=== PATIENT | female | born 1945 | race Caucasian/White ===

== ENCOUNTER 2024-08-07 11:37 | Outpatient (CLI) | payer MEDICARE, OTHER, SELFPAY ==
--- OUTSIDE RECORDS SUMMARY | 2024-08-07 11:41 | XMS_ITS ---
Author Organization [facility] Address [address] [place] [address] Care Team Providers Care Content Management Specialist Name Role Phone Hemanth Carlos Primary Care Provider Franky Oliver Unavailable [phone] Kera Brooks Unavailable [phone] Allergies Allergen (clinical drug ingredient) Drug/Non Drug Allergy documented on EMR Reaction Allergy Type Onset Date Status amoxicillin Amoxicillin Unknown Drug Allergy [place] ctive amoxicillin / clavulanate Augmentin rash Drug Allergy Active Substance with sulfonamide structure and antibacterial mechanism of action (substance) Sulfa Antibiotics rash Drug Allergy Active REASON FOR VISIT 4 month Thyroid Cancer follow up POST ULTRASOUND Medications Medication SIG (Take, Route, Frequency, Duration) Notes Start Date End Date Status ALPRAZolam 0.25 MG 1 tablet Oral once daily for 30 days As needed Active Mupirocin 2 % 1 application External Twice a day for 90 days As needed Active Desloratadine 5 MG 1 tablet Orally Once a day for 90 days Active Famotidine 40 MG 1 tablet at bedtime Orally Once a day As needed Active amLODIPine Besylate 2.5 MG 1 tablet Oral ly Once a day Active Synthroid 112 MCG 1 tablet in the morn ing on an empty stomach Oral Once a day for 90 days Active Estring 7.5 MCG/24HR 1 ring Vaginal ever y 3 months for 90 days Active Imbruvica 420 MG 1 tablet Oral Once a day for 28 days Active Azelastine HCl 137 MCG/SPRAY 1 puff in each nostril Nasal Twice a day for 93 days Active Problems Problem Type SNOMED Code ICD Code Onset Dates Problem Status W/U Status Risk Notes Problem Hypocalcemia (1006705) Hypocalcemia (E83.51) Active confirmed Vital Signs Blood pressure systolic 152 mm Hg 12/12/19 24 Blood pressure diastolic 68 mm Hg 024 Heart Rate 80 /min 12/12/2023 Height 60 in 12/12/2023 Weight 133 lbs 12/12/2023 BMI 25.97 kg/m2 12/12/2023 Encounters Encounter Location Date Provider Diagnosis [facility]- [address] [place] [address] 12/12/2023 Kera Brooks Postsurgical hypothyroidism E89.0 ; Personal history of malignant neoplasm of thyroid Z85.850 and Hypocalcemia E83.51 Assessments Encounter Date Diagnosis (ICD Code) Assessment Notes Treatment Notes Treatment Clinical Notes Section Notes 12/12/2023 Postsurgical hypothyroidism (ICD-10 - E89.0) There is both clinical and biochemical evidence for thyroid hormone deficiency. TSH 1.48 (prior 1.35) and Free T4 1.40 1. Increase dose of thyroid hormone replacement. 2. Repeat thyroid labs (thyroxine and thyrotropin) in three months and prior to next appointment. 12/12/2023 Personal history of malignant neoplasm of thyroid (ICD-10 - Z85.850) Hypothyroidism s/p total thyroidectomy for papillary thyroid cancer. No evidence for recurrence based on recent thyroglobulin levels. Reviewed latest thyroid ultrasound which did not demonstrate any residual thyroid tissue nor any significant lymphadenopathy. 1. Continue with thyroid hormone suppressive therapy. 2. Continue to monitor neck region with annual thyroid ultrasound. (Due 10/2024) 3. Continue to monitor thyroglobulin levels 12/12/2023 Hypocalcemia (ICD-10 - E83.51) Calcium 8.5 12/12/2023 Other This patient was seen under the direct supervision of Dr. Mac, who established the initial plan of care which is currently being followed Plan Of Treatment Medication Medication Name Sig Start Date Stop Date Notes Synthroid 112 MCG 1 tablet in the morn ing on an empty stomach Oral Once a day for 90 days Treatment Notes Assessment Notes Postsurgical hypothyroidism There is both clinical and biochemical evidence for thyroid hormone deficiency. TSH 1.48 (prior 1.35) and Free T4 1.40 1. Increase dose of thyroid hormone replacement. 2. Repeat thyroid labs (thyroxine and thyrotropin) in three months and prior to next appointment. Personal history of malignan t neoplasm of thyroid Hypothyroidism s/p total thyroidectomy for papillary thyroid cancer. No evidence for recurrence based on recent thyroglobulin levels. Reviewed latest thyroid ultrasound which did not demonstrate any residual thyroid tissue nor any significant lymphadenopathy. 1. Continue with thyroid hormone suppressive therapy. 2. Continue to monitor neck region with annual thyroid ultrasound. (Due 10/2024) 3. Continue to monitor thyroglobulin levels Hypocalcemia Calcium 8.5 Future Test Test Name Order Date TSH+FREE T4 03/11/2024 Comp. Metabolic Panel (14) 04/28/2024 TSH+FREE T4 04/28/2024 Next Appt Details Follow Up: 6 Months, Reason: Follow up Thyroid Cancer Progress Notes * Jade TAVARESDOB: 4 (78 yo F)Acc No.[id number]:12/12/2023 Ofc Visit Patient:?Jade TAVARES Provider:?Kera Brooks APRN :1945???Age:78 Y???Sex:Female D ate:12/12/2023 Address:[address] [place] [address] [place], [id number] Pcp:Hemanth Carlos Subjective: * Chief Complaints: * ???4 month Thyroid Cancer fo llow up POST ULTRASOUND * HPI: ???:? Endocrinology medical history summary: Hypothyroidism - diagnosed 1989 post surgical/thyroid cancer Thyroid ultrasound 11/22/2023; Status-post total thyroidectomy. Multiple benign appearing lymph nodes noted in the right and left cervical neck. No significant lymphadenopathy or evidence for thyroid cancer recurrence. Here for follow up regarding thyroid cancer management. There have not been any significant changes since our last office visit. There have not been any thyroid hormone medication changes. No recent significant illnesses. There has not been any inappropriate temperature changes, neither hot or cold intolerance. No significant memory changes, denies becoming forgetful, depressed, or irritable. Admits to anxiety. Denies any nervousness, irritability, tremors. No troubles sleeping. No chest discomfort, palpitations, or exertional dyspnea. No weakness or skin changes. No bowel, appetite or inappropriate weight changes. Has not noticed any neck enlargement, masses, or hoarseness. Admits to dry throat when she eats since starting Imbruvica. No eye problems (photophobia, eye irritation, diplopia), or changes in visual acuity. * ROS:?Endocrinology:?General?Denies fever, chills, sweats, headache.?HEENT?Dry eyes, ocular migraines, Denies double or blurred vision, sore throat, hoarseness, dysphagia, dysphonia.?Pulmonary Denies dyspnea, cough.?Cardiac?Denies chest pains, dyspnea on exertion, syncope, palpitations.?GI?Denies nausea, diarrhea, vomiting, constipation, changes in bowels, changes in appetite.??Denies urinary frequency, hematuria.?Musculoskeletal?Joint pain, Denies stiffness, weakness, muscle spasm/cramps.?Neurologic?Denies numbness/tingling,.?Dermatologic?Denies rashes or itching.?Endocrine?Denies weight changes, heat/cold intolerance, increased thirst, hair thinning.?Psychiatric?Anxiety, Denies depression, memory loss, nervousness, or insomnia.? * Medical History:? * Surgical History:?thyroidect janae 1989, 2004cesarean section 1971, 1975cholecystectomy 1994bunionectomy tubal ligation * Hospitalization/Major Diagno stic Procedure:?No Hospitalization History. * Family History:?Siblings: di agnosed with Thyroid.? * Social History:?Endocrinology:?Caffeine intake: None. ?Smoking history: Quit 1968. ?Exercise: Daily walks. ?Alcohol use: None. ?Marital status: . ?Children: 2. ?Occupation: Retired. * Medications:?TakingamLODIPin e Besylate 2.5 MG Tablet 1 tablet Orally Once a day Synthroid 100 MCG Tablet 1 tablet in the morning on an empty stomach Oral Once a day Estring 7.5 MCG/24HR Ring 1 ring Vaginal every 3 months Imbruvica 420 MG Tablet 1 tablet Oral Once a day Azelastine HCl 137 MCG/SPRAY Solution 1 puff in each nostril Nasal Twice a day Desloratadine 5 MG Tablet 1 tablet Orally Once a day Famotidine 40 MG Tablet 1 tablet at bedtime Orally Once a day As neededALPRAZolam 0.25 MG Tablet 1 tablet Oral once daily As neededMupirocin 2 % Ointment 1 application External Twice a day As neededTaking amLODIPine Besylate 2.5 MG Tablet 1 tablet Orally Once a day Taking Synthroid 100 MCG Tablet 1 tablet in the morning on an empty stomach Oral Once a day Taking Estring 7.5 MCG/24HR Ring 1 ring Vaginal every 3 months Taking Imbruvica 420 MG Tablet 1 tablet Oral Once a day Taking Azelastine HCl 137 MCG/SPRAY Solution 1 puff in each nostril Nasal Twice a day Taking Desloratadine 5 MG Tablet 1 tablet Orally Once a day Taking Famotidine 40 MG Tablet 1 tablet at bedtime Orally Once a day As neededTaking ALPRAZolam 0.25 MG Tablet 1 tablet Oral once daily As neededTaking Mupirocin 2 % Ointment 1 application External Twice a day As neededDiscontinuedLevocetirizine Dihydrochloride 5 MG Tablet 1 tablet in the evening Oral Once a day Medication List reviewed and reconciled with the patientDiscontinued Levocetirizine Dihydrochloride 5 MG Tablet 1 tablet in the evening Oral Once a day Medication List reviewed and reconciled with the patient * Allergies:?Sulfa Antibiotics : rash - AllergyAugmentin: rash - Allergyno[Allergies Verified] Objective: * Vitals:?Ht: 60, Wt: 133 lbs, BP: 152/68 mm Hg, HR: 80 /min, BMI: 25.97 Index, Ht-cm: 152.4 cm, Wt-k.33 kg. * ???Past Orders: ???Lab:CLIENT EDUCATION OSIRIS SINGH (Order Date - 11/30/2023) (Collection Date & Time - 11/30/2023 07:55 AM) ???Lab:THYROGLOBULIN PANEL ( Order Date - 11/30/2023) (Collection Date & Time - 11/30/2023 07:55 AM) ? Value Reference Range ?THYROGLOBULIN ANTIBODIES 10 H < or = 1 - IU/mL ?THYROGLOBULIN <0.1 L - ng/m L * Examination: ???ENDO EXAM: ?General: ?Normal Appearance.?Eyes: ?Normal Appearance. No lid lag, proptosis or exophthalmos.?Neck: ?Supple, No Masses, Well Healed Scar.?Thyroid: ?No palpable thyroid.?Cardiac: ?Regular rate and Rhythm without murmur, No carotid bruits.?Pulmonary: ?Normal effort without accessory muscle use. No rales, rhonchi, or wheezes.?Musculoskeletal:?Normal mobility and gait.?Neurological: ?No Tremors.?Mental Status: ?Intact judgement and orientation. Normal mood and affect.?Skin:?No rashes, lesions, or ulcerations.? Assessment: * Assessment: 1.?Postsurgical hypothyroidi sm - E89.0?2.?Personal history of malignant neoplasm of thyroid - Z85.850?3.?Hypocalcemia - E83.51? Plan: * Treatment: 2.?Personal history of malig nant neoplasm of thyroid? Notes: Hypothyroidism s/p total thyroidectomy for papillary thyroid cancer. No evidence for recurrence based on recent thyroglobulin levels. Reviewed latest thyroid ultrasound which did not demonstrate any residual thyroid tissue nor any significant lymphadenopathy. 1. Continue with thyroid hormone suppressive therapy. 2. Continue to monitor neck region with annual thyroid ultrasound. (Due 10/2024) 3. Continue to monitor thyroglobulin levels?? 3.?Hypocalcemia?LAB: Comp. Metabolic Panel (14) (Ordered for 04/28/2024) Notes: Calcium 8.5?? 4.?Others? Clinical Notes: This patient was seen under the direct supervision of Dr. Mac, who established the initial plan of care which is currently being followed ?? * Procedure Codes:? * Preventive Medicine:? ??Endocrine:?BMI care Goal Follow Up Plan?Above Normal BMI Follow-up?Giving encouragement to exercise ??Counseling:?Advance Care Planning?Date of last Advance Care Planning:?12/12/2023 ??Screenings:?FALL RISK SCREENING?Fall Risk Assessment:?No falls in the past year ?Plan of Care:?Documented * Follow Up:?6 Months (Reason: Follow up Thyroid Cancer) * Care Plan Details* * Sign off status: Completed true * Provider:?Kera rBooks APRN Date:?11/25 Generated for Florecita loera/Tayler/Lincolnitting on:?08/07/2024 11:41 AM EST History and Physical Notes * HPI (History of Present Illness) Category Sub-Category Detail Notes Category Not es Endocrinology medical history summary: Hypothyroidism - diagnosed 1989 post surgical/thyroid cancer Thyroid ultrasound 11/22/2023; Status-post total thyroidectomy. Multiple benign appearing lymph nodes noted in the right and left cervical neck. No significant lymphadenopathy or evidence for thyroid cancer recurrence. Here for follow up regarding thyroid cancer management. There have not been any significant changes since our last office visit. There have not been any thyroid hormone medication changes. No recent significant illnesses. There has not been any inappropriate temperature changes, neither hot or cold intolerance. No significant memory changes, denies becoming forgetful, depressed, or irritable. Admits to anxiety. Denies any nervousness, irritability, tremors. No troubles sleeping. No chest discomfort, palpitations, or exertional dyspnea. No weakness or skin changes. No bowel, appetite or inappropriate weight changes. Has not noticed any neck enlargement, masses, or hoarseness. Admits to dry throat when she eats since starting Imbruvica. No eye problems (photophobia, eye irritation, diplopia), or changes in visual acuity. Examination Category Sub-Category Detail Notes Category Not es ENDO EXAM Neck: Supple, No Masses, Well Heal ed Scar Thyroid: No palpable thyroid Eyes: Normal Appearance. N o lid lag, proptosis or exophthalmos Cardiac: Regular rate and Rhy thm without murmur, No carotid bruits General: Normal Appearance Pulmonary: Normal effort withou t accessory muscle use. No rales, rhonchi, or wheezes Musculoskeletal: Normal mobility and gait Skin: No rashes, lesions, or ulcerations Neurological: No Tremors Mental Status: Intact judgement and orientation. Normal mood and affect
--- OUTSIDE RECORDS SUMMARY | 2024-08-07 11:41 | XMS_ITS ---
Author Organization [facility] Address [address] [place] [address] Care Team Providers Care Prop Maker Name Role Phone Hemanth Carlos Primary Care Provider Franky Oliver Unavailable [phone] Allergies Allergen (clinical drug ingredient) Drug/Non Drug Allergy documented on EMR Reaction Allergy Type Onset Date Status amoxicillin Amoxicillin Unknown Drug Allergy [place] ctive amoxicillin / clavulanate Augmentin rash Drug Allergy Active Substance with sulfonamide structure and antibacterial mechanism of action (substance) Sulfa Antibiotics rash Drug Allergy Active REASON FOR VISIT Synthroid to [facility] Medications Medication SIG (Take, Route, Fr equency, Duration) Notes Start Date End Date Status Synthroid 112 MCG 1 tablet in the morn ing on an empty stomach Oral Once a day for 90 days Active Encounters Encounter Location Date Provider Diagnosis [facility] [address] [place] [address] 01/02/2024 Franky Mac Postsurgical hypothyroidism E89.0 Assessments Encounter Date Diagnosis (ICD Code) Assessment Notes Treatment Notes Treatment Clinical Notes Section Notes 01/02/2024 Postsurgical hypothyroidism (ICD-10 - E89.0) Plan Of Treatment Medication Medication Name Sig Start Date Stop Date Notes Synthroid 112 MCG 1 tablet in the morn ing on an empty stomach Oral Once a day for 90 days Progress Notes * Jade TAVARESDOB: 4 (78 yo F)Acc No.[id number]:01/02/2024 Patient:?ANUSHA Jade :1945???Age:78 Y???Sex:Female Address:[address], [place] [address] * Refills? Refill Synthroid Tablet, 112 MCG, Oral, 90 Tablet, 1 tablet in the morning on an empty stomach, Once a day, 90 days, Refills=1 Subjective: * Chief Complaints: * ???Synthroid to [facility] * Medical History:? * Surgical History:? * Hospitalization/Major Diagno stic Procedure:? * Medications:? * Allergies:?Sulfa Antibiotics : rash - AllergyAugmentin: rash - Allergyno[Allergies Verified] Objective: * Vitals:? * Physical Examination:? Assessment: * Assessment: 1.?Postsurgical hypothyroidi sm - E89.0? Plan: * Treatment: * Procedure Codes:? * true * Date:? Generated for Florecita loera/Tayler/Lincolnitting on:?08/07/2024 11:41 AM EST
--- OUTSIDE RECORDS SUMMARY | 2024-08-07 11:41 | XMS_ITS ---
Author Organization [facility] Address [address] [place] [address] Care Team Providers Care Workforce Development Program Director Name Role Phone JonnHemanth Primary Care Provider sasha Hemanth Unavailable [phone] Reason For Referral Reason replaced by [facility] Diagnosis 1 CLL (chronic lymphoc ytic leukemia) (C91.10) Referral Organization [facility] Referring Provider First Name Hemanth Referring Provider Last Name Breanna Referring Provider Speciality Internal M edicine Referred Organization [facility] Referred Address [address] [place], [place],[address], Referred Provider Specialty Oncology Referral Priority Routine Encounters Encounter Location Date Provider Diagnosis [facility] [address] [place] [address] 10/30/2023 Hemanth Tiwarisasha CLL (chronic lymphocytic leukemia) C91.10 Assessments Encounter Date Diagnosis (ICD Code) Assessment Notes Treatment Notes Treatment Clinical Notes 10/30/2023 CLL (chronic lymphocytic leukemia) (ICD-10 - C91.10) was in remission, recurrence 1 1/2 yrs ago, feels may have been brought on by vaccine, COVID 19. Stable on Imbruvica, [place]/ [place] 06/[place]/23 patient is establishing with Dr Villeda in [place] 10/04/23 WBC 11.27 following with oncologist on ibrutinib Plan Of Treatment Referrals Referral Date Details 10/30/2023 10/30/2023, replaced by [facility], [address], [place], [address], Progress Notes * Jade TAVARESDOB: 4 (78 yo F)Acc No.[id number]:10/30/2023 Patient:?Jade Tavares :1945???Age:78 Y???Sex:Female Address:[address] [place] [address] , [place] [address] Subjective: * Chief Complaints: * ??? * Medical History:? * Surgical History:? * Hospitalization/Major Diagno stic Procedure:? * Medications:? Objective: Assessment: * Assessment: 1.?CLL (chronic lymphocytic leukemia) - C91.10 (Primary), was in remission, recurrence 1 1/2 yrs ago, feels may have been brought on by vaccine, COVID 19. Stable on Imbruvica, follows w/ oncology Dr. Cisse [place], [place].06/28/23 patient is establishing with Dr [place]23 WBC 11.27 following with oncologist on ibrutinib? Plan: * Treatment: * Procedure Codes:? * true * Date:? Generated for Florecita loera/Tayler/Juniorsmitting on:?08/07/2024 11:41 AM EST Consultation Request Notes Referral Date Referring Provider Referred Provider Not es 10/30/2023 Hemanth Carlos , replaced by [facility]
--- OUTSIDE RECORDS SUMMARY | 2024-08-07 11:41 | XMS_ITS | Patient Health Record ---
Author Organization [facility]- Address [address] [place] [address] Care Team Providers Care Core Shaper Sides Name Role Phone Hemanth Carlos Primary Care Provider Franky Oliver Unavailable [phone] Kera Brooks Unavailable [phone] Allergies Allergen (clinical drug ingredient) Drug/Non Drug Allergy documented on EMR Reaction Allergy Type Onset Date Status amoxicillin Amoxicillin Unknown Drug Allergy Lucille ctive amoxicillin / clavulanate Augmentin rash Drug Allergy Active Substance with sulfonamide structure and antibacterial mechanism of action (substance) Sulfa Antibiotics rash Drug Allergy Active Results Component Value Reference Range Notes CLIENT EDUCATION TRACKING Reviewed date:12/04/2023 04:10:56 PM Interpretation: Performing Lab:[id number] [id number] Michele Wyatt MD Notes/Report: FASTING: YES CLIENT EDUCATION TRACKING The Requisition we received did not include a [employer] account number. To prevent delays in testing and processing of your orders please provide the following information with every order submitted: [facility] account number and account name Client address Client phone and fax number NPI number of ordering physician along with the physician name. THYROGLOBULIN PANEL Reviewed date:12/04/2023 04:10:56 PM Interpretation: Performing Lab:[facility] [id number] [id number] Michele Wyatt MD Notes/Report: FASTING: YES THYROGLOBULIN ANTIBODIES 10 < or = 1 IU/mL THYROGLOBULIN <0.1 Reference Range: Intact Thyroid 2.8-40.9 Athyrotic <0.1 Note: Abnormal flagging is based on the reference interval for patients with intact thyroid. This test was performed using the Johnathan Sofy chemiluminescent method. Values obtained from different assay methods cannot be used interchangeably. Thyroglobulin levels, regardless of value, should not be interpreted as absolute evidence of the presence or absence of disease. This specimen was found to contain anti-thyroglobulin antibodies. The presence of these autoantibodies may cause falsely low thyroglobulin values. In Tg-antibody positive patients the thyroglobulin by tandem mass spectrometry (test code 32261 - Thyroglobulin, LC/MS/MS; or panel test code 04738 - Thyroid Cancer (Thyroglobulin) Monitoring) test is recommended because it has no interference from autoantibodies. For additional information, please refer to http://education.Pluck/faq/QDQ125 (This link is being provided for informational/ educational purposes only.) Reason For Referral No Information Medications Medication SIG (Take, Route, Frequency, Duration) [...] tablet Oral ly Once a day Active Estring 7.5 MCG/24HR 1 ring Vaginal ever y 3 months for 90 days Active Synthroid 112 MCG 1 tablet in the morn ing on an empty stomach Oral Once a day for 90 days Active Imbruvica 420 MG 1 tablet Oral Once a day for 28 days Active Azelastine HCl 137 MCG/SPRAY 1 puff in each nostril Nasal Twice a day for 93 days Active Problems Problem Type SNOMED Code ICD Code Onset Dates Problem Status W/U Status Risk Notes Problem Hypocalcemia (8286423) Hypocalcemia (E83.51) Active confirmed Problem Postsurgical hypothyroidism (59612713) Postsurgical hypothyroidism (E89.0) Active confirmed Problem History of malignant neoplasm of thyroid (700104937) Personal history of malignant neoplasm of thyroid (Z85.850) Active confirmed Vital Signs Heart Rate 80 /min 12/12/2023 Blood pressure diastolic 68 mm Hg 12/12/2023 Height 60 in 12/12/2023 Blood pressure systolic 152 mm Hg 12/12/2023 Weight 133 lbs 12/12/2023 BMI 25.97 kg/m2 12/12/2023 Encounters Encounter Location Date Provider Diagnosis [address] [address] 08/09/2023 Franky Mac Postsurgical hypothyroidism E89.0 and Personal history of malignant neoplasm of thyroid Z85.[address] [address] 11/22/2023 Franky Mac Personal history of malignant neoplasm of thyroid Z85.[address] [address] 12/12/2023 Kera Brooks Postsurgical hypothyroidism E89.0 ; Personal history of malignant neoplasm of thyroid Z85.850 and Hypocalcemia E83.[address] [address] 01/02/2024 Franky Mac Postsurgical hypothyroidism E89.0 Assessments Encounter Date Diagnosis (ICD Code) Assessment Notes Treatment Notes Treatment Clinical Notes Section Notes 08/09/2023 Postsurgical hypothyroidism (ICD-10 - E89.0) Reviewed medical history and specifically thyroid hormone replacement history with patient. There does not appear to be any signs or symptoms suggesting a change in the dose of thyroid hormone replacement therapy. Therefore, we have opted to continue with the current dose and management. I will repeat a set of thyroid studies (thyroxine and thyrotropin) to see if levels are within range. I will make the necessary dose adjustments if indicated. 11/22/2023 Personal history of malignant neoplasm of thyroid (ICD-10 - Z85.850) 12/12/2023 Postsurgical hypothyroidism (ICD-10 - E89.0) There is both clinical and biochemical evidence for thyroid hormone deficiency. TSH 1.48 (prior 1.35) and Free T4 1.40 1. Increase dose of thyroid hormone replacement. 2. Repeat thyroid labs (thyroxine and thyrotropin) in three months and prior to next appointment. 01/02/2024 Postsurgical hypothyroidism (ICD-10 - E89.0) 12/12/2023 Personal history of malignant neoplasm of [...] 10/2024) 3. Continue to monitor thyroglobulin levels 08/09/2023 Personal history of malignant neoplasm of thyroid (ICD-10 - Z85.850) At this point there does not appear to be any evidence for recurrence or persistent disease. Appears to clinically stable. I have scheduled a repeat thyroid ultrasound and will also reassess thyroglobulin levels. 12/12/2023 Hypocalcemia (ICD-10 - E83.51) Calcium 8.5 12/12/2023 Other This patient was seen under the direct supervision of Dr. Mac, who established the initial plan of care which is currently being followed Plan Of Treatment Future Test Test Name Order Date THYROGLOBULIN ANTIBODIES * 11/08/2023 Comp. Metabolic Panel (14) 11/08/2023 TSH+Free T4 11/08/2023 THYROGLOBULIN* 11/08/2023 TSH+FREE T4 03/11/2024 Comp. Metabolic Panel (14) 04/28/2024 TSH+FREE T4 04/28/2024 Insurance Providers Payer Name Payer Address Payer Phone Subscriber Number Group Number Insured Name Patient Relationship to Insured Coverage Start Date Coverage End Date MEDICARE [address] [address] [place] [address] [id number] Jade Vallejo Self - patient is the insured 9 [facility] [address] [place] [address] [id number] Jade aVllejo Self - patient is the insured 2 Medical (General) History Medical History History ICD Code Hypothyroid HTN Thyroid cancer Chronic lymphocytic leukemia Surgical History Surgery Date(Month/Year) thyroidectomy 1989, 2004 section 1970, 1974 cholecystectomy 1994 bunionectomy tubal ligation
--- OUTSIDE RECORDS SUMMARY | 2024-08-07 11:41 | XMS_ITS ---
Author Organization [facility] Address [address] [place] [address] Care Team Providers Care Spine Specialist Name Role Phone Hemanth Lunsford Primary Care Provider [phone] Hemanth Carlos Unavailable [phone] REASON FOR VISIT fasting labs Medications Medication SIG (Take, Route, Frequency, Duration) Notes Start Date End Date Status Xanax 0.25 MG 1 tablet Orally daily for 30 days prn 06/28/2023 Active Synthroid 100 MCG 1 tablet in the morning on an empty stomach Orally Once a day for 90 days Name brand only Active Mupirocin 2 % 1 application Externally Twice a day for 30 days Active Milk of Magnesia Act jeanie Imbruvica 420 MG 1 tablet Orally Once a day 1 1/2 years for [facility]-Dr. Wesley Benitez Active Flax Seed Oil Active Pepcid 40 MG 1 tablet at bedtime Orally as needed Active amLODIPine Besylate 2.5 MG 1 tablet Orally Once a day Active Loratadine 10 MG 1 tablet Orally Once a day Active Estring 7.5 MCG/24HR 1 ring Vaginal Active Desloratadine 5 MG 1 tablet Orally Once a day for 90 days Active Encounters Encounter Location Date Provider Diagnosis [facility] [address] [place] [address] 11/30/2023 Hemanth Lunsford Hypothyroidism (acqu ired) E03.9 ; Hyperlipemia, mixed E78.2 ; Hypogammaglobulinemia D80.1 and Hypothyroidism, unspecified type E03.9 Assessments Encounter Date Diagnosis (ICD Code) Assessment Notes T reatment Notes Treatment Clinical Notes 11/30/2023 Hypothyroidism (acqu ired) (ICD-10 - E03.9) 08/21/2022-TSH completed in [place] unknown, TSH ordered today as she reports she did have a change in her dose in the spring from 100mcg daily to 88mcg Synthroid currently. 08/31/2022 TSH 14, Aaron notified. Increased her Synthroid to 100mcg daily and f/u 2 months for repeat TSH. She understands and agrees. 09/01/22 [place] T4 1.42 TSH 14.13 we will increase to 100mcg 11/03/22 Free t4- 1.65 TSH 1.66 12/29/22 Free t4- 1.74 Free t3 2.20 TSH 1.26 11/30/2023 Hyperlipemia, mixed (ICD-10 - E78.2) 10/04/23 TC 241 Trigs 93 HDL 80 LDL 172 11/30/2023 Hypogammaglobulinemi a (ICD-10 - D80.1) 10/04/23 Pts IgG 585 and was started on 2 rounds of IVIG at [facility]. 11/30/2023 Hypothyroidism, unspecified type (ICD-10 - E03.9) Plan Of Treatment No Information Procedure Notes * Category Sub-Category Detail Notes Venipuncture Venipuncture: verbal consent o btained , 21g needle , Right arm , number of attempts: 1 , All labs done in house , Thyroglobulin Antibodies and Thyroglobulin sent to [facility] , patient tolerated procedure well Progress Notes * Jade TAVARESDOB: 4 (78 yo F)Acc No.[id number]:11/30/2023 [facility] Patient:?Jade Tavares Provider:?Hemanth Wolfe MD :1945???Age:78 Y???Sex:Female D ate:11/30/2023 Address:[facility] [address], [facility] [id number] Subjective: * Chief Complaints: * ???1. Fasting labs. * HPI: ???AWV-F:? Patient is here for fasting labs ordered by [facility]. Patient states that she is fasting. * Medical History:? * Medications:?Taking Loratadi ne 10 MG Tablet 1 tablet Orally Once a day, Taking Estring 7.5 MCG/24HR Ring 1 ring Vaginal , Taking amLODIPine Besylate 2.5 MG Tablet 1 tablet Orally Once a day, Taking Flax Seed Oil , Taking Pepcid 40 MG Tablet 1 tablet at bedtime Orally as needed, Taking Milk of Magnesia , Taking Imbruvica 420 MG Tablet 1 tablet Orally Once a day, Notes: 1 1/2 years for [facility]-Dr. Wesley Benitez, Taking Synthroid 100 MCG Tablet 1 tablet in the morning on an empty stomach Orally Once a day, Notes: Name brand only, Taking Mupirocin 2 % Ointment 1 application Externally Twice a day, Taking Xanax 0.25 MG Tablet 1 tablet Orally daily, Notes: prn, Taking Desloratadine 5 MG Tablet 1 tablet Orally Once a day Objective: Assessment: * Assessment: 1.?Hyperlipemia, mixed - E78 .2, 10/04/23 TC 241 Trigs 93 HDL 80 LDL 172?2.?Hypothyroidism (acquired) - E03.9, 08/21/2022-TSH completed in [place] unknown, TSH ordered today as she reports she did have a change in her dose in the spring from 100mcg daily to 88mcg Synthroid currently.08/31/2022 TSH 14, Aaron notified. Increased her Synthroid to 100mcg daily and f/u 2 months for repeat TSH. She understands and agrees.09/01/22 [place] T4 1.42 TSH 14.13 we will increase to 618bkl6/06/18 Free t4- 1.65 TSH 1.665/01/16 Free t4- 1.74 Free t3 2.20 TSH 1.26?3.?Hypogammaglobulinemia - D80.1, 10/04/23 Pts IgG 585 and was started on 2 rounds of IVIG at [facility].?4.?Hypothyroidism, unspecified type - E03.9? Plan: * Treatment: * Procedures:?Venipuncture:?Venipuncture:?verbal consent obtained , 21g needle , Right arm , number of attempts: 1 , All labs done in house , Thyroglobulin Antibodies and Thyroglobulin??sent to [facility]?, patient tolerated procedure well.? * Procedure Codes:?11896 VENIP UNCT, ROUTINE*, 47595 COMPREHEN METABOLIC PANEL, 91120 ASSAY OF FREE THYROXINE, 32511 ASSAY THYROID STIM HORMONE * Images: * Sign off status: Completed true * Provider:Napoleon Wolfe MD Date:? 024 Generated for Florecita loera/Tayler/Lincolnitting on:?08/07/2024 11:41 AM EST
--- OUTSIDE RECORDS SUMMARY | 2024-08-07 11:41 | XMS_ITS ---
Author Organization [facility] Address [address] [place] [address] Care Team Providers Care Red Hat Engineer Name Role Phone Hemanth Carlos Primary Care Provider Franky Oliver Unavailable [phone] Kera Brooks Unavailable [phone] REASON FOR VISIT 7 month Thyroid Cancer follow up Encounters Encounter Location Date Provider Diagnosis [address] [address] 07/01/2024 Kera Brooks Plan Of Treatment No Information Progress Notes * Jade TAVARESDOB: [birth year] (78 yo F)Acc No.[id number]:07/01/2024 Ofc Visit Patient:?Jade TAVARES Provider:?Kera Brooks APRN :1945???Age:78 Y???Sex:Female D ate:07/01/2024 Address:[address] [place] [address] [id number] Pcp:Hemanth Carlos Subjective: * Chief Complaints: * ???1. 7 month Thyroid Cancer follow up. * Medical History:? Objective: * Vitals:? Assessment: Plan: * Treatment: * Care Plan Details* * Electronic signature of Rosalva Brooks on 08/07/2024 at 11:40 AM EST Sign off status: Pending * Provider:?Kera Brooks APRN Date:?12/2023 Generated for Florecita loera/Tayler/eTtanishasmitting on:?08/07/2024 11:40 AM EST
--- OUTSIDE RECORDS SUMMARY | 2024-08-07 11:42 | XMS_ITS ---
Author Organization [facility] [place] [facility] [employer] Address [address] [place] [address] Care Team Providers Care Seamer Panty Hose Name Role Phone Hemanth Lunsford Primary Care Provider [phone] BreannaHemanth Unavailable [phone] Allergies Allergen (clinical drug ingredient) Drug/Non Drug Allergy documented on EMR Reaction Allergy Type Onset Date Status amoxicillin / clavulanate Augmentin Unknown Drug Allergy Active Levaquin Unknown Drug Allergy Active Sulfur Unknown Drug Allergy Active REASON FOR VISIT 3 Mo. FU Labs (IH), Meds Reconciled Verbally Medications Medication SIG (Take, Route, Frequency, Duration) Notes Start Date End Date Status Synthroid 100 MCG 1 tablet in the morning on an empty stomach Orally Once a day for 90 days Name brand only Active Xanax 0.25 MG 1 tablet Orally daily for 30 days prn 06/28/2023 Active Mupirocin 2 % 1 application Externally Twice a day for 30 days Active Desloratadine 5 MG 1 tablet Orally Once a day for 90 days Active Pepcid 40 MG 1 tablet at bedtime Orally as needed Active Flax Seed Oil Active Imbruvica 420 MG 1 tablet Orally Once a day 1 1/2 years for CLL-Dr. Wesley Benitez Active Milk of Magnesia Act jeanie amLODIPine Besylate 2.5 MG 1 tablet Orally Once a day Active Loratadine 10 MG 1 tablet Orally Once a day Active Estring 7.5 MCG/24HR 1 ring Vaginal Active Social History Tobacco Use: Social History Observation Description Date Details (start date - stop date) Never Smoker NA - NA Tobacco Use/Smoking Question Answer Notes Are you a: never smoker Problems Problem Type SNOMED Code ICD Code Onset Dates Problem Status W/U Status Risk Notes Problem Hypogammaglobulinemi a ([id number]) Hypogammaglobulinem ia (D80.1) Active confirmed 10/04/23 Pts IgG 585 and was started on 2 rounds of IVIG at [facility]. Vital Signs Blood pressure systolic 128 mm Hg 10/04/19 24 Blood pressure diastolic 80 mm Hg 024 Heart Rate 93 /min 10/04/2023 Height 60 in 10/04/2023 Weight 131 lbs 10/04/2023 BMI 25.58 kg/m2 10/04/2023 Oximetry 97 % 10/04/2023 Roomed by Arlyn Youssef Encounters Encounter Location Date Provider Diagnosis [facility] [address] [address] 10/04/2023 Hemanth Carlos Hypothyroidism (acqu ired) E03.9 ; Primary hypertension I10 ; CLL (chronic lymphocytic leukemia) C91.10 ; GERD without esophagitis K21.9 ; Irritable bowel syndrome with diarrhea K58.0 ; Osteochondrodysplasia, unspecified Q78.9 ; Mid-back pain, acute M54.9 ; Other microscopic hematuria R31.29 ; Environmental allergies Z91.09 ; Elevated blood sugar R73.9 ; Hyperlipemia, mixed E78.2 ; Right hip pain M25.551 ; Anxiety F41.9 ; Hypogammaglobulinemia D80.1 and Cerumen debris on tympanic membrane of both ears H61.23 Assessments Encounter Date Diagnosis (ICD Code) Assessment Notes Treatment Notes Treatment Clinical Notes 10/04/2023 Hypothyroidism (acqu ired) (ICD-10 - E03.9) 08/21/2022-TSH completed in [place] unknown, TSH ordered today as she reports [...] t4- 1.74 Free t3 2.20 TSH 1.26 controlled with synthroid 100 mcg 10/04/2023 Primary hypertension (ICD-10 - I10) 08/21/2022-stable home bp's on amlodipine 2.5mg daily, although slightly elevated in OV today, will continue to monitor. Recent CMP by oncology wnl. continue amlodipine 10/04/2023 CLL (chronic lymphoc ytic leukemia) (ICD-10 - C91.10) was in remission, recurrence 1 1/2 yrs ago, feels may have been brought on by vaccine, COVID 19. Stable on Imbruvica, follows w/ oncology Dr. Cisse [place], [place]. 06/28/23 patient is establishing with Dr Villeda in [place] 10/04/23 WBC 11.27 following with oncologist on ibrutinib stable, followed by oncologist 10/04/2023 GERD without esophag itis (ICD-10 - K21.9) pepcid, not daily, Nexium continue pepcid 10/04/2023 Irritable bowel synd rodríguez with diarrhea (ICD-10 - K58.0) controlled. Cont to monitor 10/04/2023 Osteochondrodysplasi a, unspecified (ICD-10 - Q78.9) Thoracic Spine CT: IMPRESSION:1. Mild anterolisthesis of C7 on T1 of approximately 3 mm. 2. Pjlwatxr-ju-okerqz multilevel thoracic spondylosis and degenerative disc disease. 3. Exaggerated thoracic kyphosis. 4. No acute fracture or subluxation. 5. Patchy sclerotic changes within the T7 vertebral body with additional more extensive sclerotic changes in the L2 vertebral body. I cannot exclude malignancy/metastas is. Correlation with bone scan or MRI without and with contrast is strongly recommended. 10/04/2023 Mid-back pain, acute (ICD-10 - M54.9) 08/21/2022 request records, 2 weeks chest xray Urgent Care, Aaron has concern about cancer, will follow w/ Dr. Carlos post CT scan thoracic-hx of bone lesion, will need to request these records from [facility] as well. 09/01/22. Thoracic Spine CT: IMPRESSION:1. Mild anterolisthesis of C7 on T1 of approximately 3 mm. 2. Ocloxbmt-qs-eymtkk multilevel thoracic spondylosis and degenerative disc disease. 3. Exaggerated thoracic kyphosis. 4. No acute fracture or subluxation. 5. Patchy sclerotic changes within the T7 vertebral body with additional more extensive sclerotic changes in the L2 vertebral body. I cannot exclude malignancy/metastas is. Correlation with bone scan or MRI without and with contrast is strongly recommended. 09/01/22 we will start Physcial therapy as pt doesnt want MRI as of now. if not improved we will obtain MRI of T and L spine 10/04/2023 Other microscopic hematuria (ICD-10 - R31.29) 3+ blood in urine will have her f/u w/ urology. 3rd time found hematuria. Has used keflex and cipro several antibx allergies. Urology referral Dr. Nichole for further evaluatoin. 10/04/2023 Environmental allerg ies (ICD-10 - Z91.09) contineu loratidine 10/04/2023 Elevated blood sugar (ICD-10 - R73.9) 10/04/2023 Hyperlipemia, mixed (ICD-10 - E78.2) 10/04/23 TC 241 Trigs 93 HDL 80 LDL 172 continue lifestyle changes and diet. 10/04/2023 Right hip pain (ICD- 10 - M25.551) 06/28/23 secondary to OA. she has undergoing physical therapy 10/04/2023 Anxiety (ICD-10 - F41.9) continue prn xanax. 10/04/2023 Hypogammaglobulinemi a (ICD-10 - D80.1) 10/04/23 Pts IgG 585 and was started on 2 rounds of IVIG at [facility]. pt is scheduled for ivig through oncologist. 10/04/2023 Cerumen debris on tympanic membrane of both ears (ICD-10 - H61.23) 10/04/23 improved with ear lavage 10/04/2023 Other oncologist notes and labs were reviewed Total time in office and reviewing records today was 46 minutes Plan Of Treatment Medication Medication Name Sig Start Date Stop Date Notes Desloratadine 5 MG 1 tablet Orally Once a day for 90 days Treatment Notes Assessment Notes Primary hypertension continue amlodipine Environmental allergies contineu loratid ine Next Appt Details Follow Up: 6 Months, Reason: Progress Notes * Darren TAVARES: 4 (77 yo F)Acc No.[id number]:10/04/2023 Progress Notes Patient:Jade Sultana Provider:?Hemanth Carlos, :1945???Age:77 Y???Sex:Female D ate:10/04/2023 Address:[address], [facility] Pcp:Hemanth Lunsford Subjective: * Chief Complaints: * ???3 Mo. FU Labs ()Meds Re conciled Verbally * HPI: ???Interim History:? 12/29/22: Patient presents today after completing blood work on 12/22/2022. All lab values are listed below. Patient is requesting a referral for Endocrinology. ?. ?06/28/2023: Patient presents today for 5 month lab review drawn on 04/11/2023,06/04/2023,06/22/2023. Patient states she has been having right hip pain. 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 ?. ?10/04/2023: Patient is a 77 y/o female who presents today for lab review from 09/25/2023. * ROS:?All Other Systems:?Review of Systems (ROS)?All others negative except those mentioned in HPI.?General/Constitutional?Denies, Chills, Fever, Fatigue, Night Sweats.?Eyes?Denies, Blurred Vision, Eye Pain-cataracts not yet removed-bifocals.?ENT?Complains of, Nasal Congestion , Ear Pain.?Cardiovascular?Denies, Chest Pain, Dizziness, Palpatations, Tachycardia.?Respiratory?Denies, Cough Acute, Cough Chronic, Dyspnea, Wheezing.?Gastrointestinal?Denies, Abdominal Pain, Bloating, Constipation, Diarrhea, Nausea, Vomiting ?Diverticulosis/GERD/IBS and hemorrhoids.?Genitourinary?Denies, Dysuria, Hematuria, Nocturia, Urinary Incontinence, recurrent UTIs likely associated w/ Imbruvica for CLL.?Musculoskeletal?Denies, Arthralgias, Back Pain, Joint Stiffness, Limb Pain, Myalgia ?Dr. Carlos plans to see her in 2 weeks for midback pain (x 2 weeks) xrays urgent care. Feels?urgency about getting MRI. ?C/o starting to get arthritis fingers and feet darling, and leg cramps b/c Imbruvica will stay on rest of life for CLL.?Integumentary?Denies, Acne, Atypical Moles, Fungal Nail Infection, Rashes ?left leg rash, taking prednisone x 5 days ?.?Nuerological?Denies, Dizziness, Fainting, Headache, Memory Loss, Seizures, Numbness, Vertigo, Weakness.?Hematologic/Lymphatic?Denies, Easy Bruising.?Endocrine?Denies, Hair Loss, Heat/Cold Intolerance, Excessive Sweating ?papillary thyroid cancer, removed? 1989, discovered CLL then, 8 yrs without tx, may be brought on by taking the vaccine, COVID 14 Sep 2019.stable on?Synthroid, change in dose last summer, needs TSH rechecked..?Allergic/Immunologic?Denies, Seasonal Allergies/Hayfever, Perennial ?[place] CLL tx, hc papillary thyroid cancer.?Psychiatric?C/o related to pain-Anxiety, denies Depression, Poor Concentration, Sadness, Sleep Disturbance.?eye exams [facility]-Hemanth Jackson 1/2 yr and 5 months [place]/cancer Dr. CALDERÓN [place]. * Medical History:? * Surgical History:?Tonsillect janae 194Colonoscopy Tubal Ligation 1975Thyroidectomy 1990Thyroidectomy 2005Bunion 1996Cholecystectomy * Hospitalization/Major Diagno stic Procedure:?No Hospitalization History. * Family History:?Father: dece ased.?Mother: .?Paternal Grand Father: .?Paternal Grand Mother: .?Maternal Grand Father: .?Maternal Grand Mother: .?1 sister(s) . 1 son(s) , 1 daughter(s) . .? * Social History:?Tobacco Use:?Tobacco Use/Smoking?Are you a:?never smoker ???Drugs/Alcohol:?Do you drink alcohol?: No. * Medications:?TakingLoratadin e 10 MG Tablet 1 tablet Orally Once a dayEstring 7.5 MCG/24HR Ring 1 ring Vaginal amLODIPine Besylate 2.5 MG Tablet 1 tablet Orally Once a dayFlax Seed Oil Pepcid 40 MG Tablet 1 tablet at bedtime Orally as neededMilk of Magnesia Imbruvica 420 MG Tablet 1 tablet Orally Once a day, Notes: 1 1/2 years for CLL-Dr. Wesley LindquistySynthroid 100 MCG Tablet 1 tablet in the morning on an empty stomach Orally Once a day, Notes: Name brand onlyMupirocin 2 % Ointment 1 application Externally Twice a dayXanax 0.25 MG Tablet 1 tablet Orally daily, Notes: prnTaking Loratadine 10 MG Tablet 1 tablet Orally Once a dayTaking Estring 7.5 MCG/24HR Ring 1 ring Vaginal Taking amLODIPine Besylate 2.5 MG Tablet 1 tablet Orally Once a dayTaking Flax Seed Oil Taking Pepcid 40 MG Tablet 1 tablet at bedtime Orally as neededTaking Milk of Magnesia Taking Imbruvica 420 MG Tablet 1 tablet Orally Once a day, Notes: 1 1/2 years for CLL-Dr. Wesley LindquistyTaking Synthroid 100 MCG Tablet 1 tablet in the morning on an empty stomach Orally Once a day, Notes: Name brand onlyTaking Mupirocin 2 % Ointment 1 application Externally Twice a dayTaking Xanax 0.25 MG Tablet 1 tablet Orally daily, Notes: prnDiscontinuedLevocetirizine Dihydrochloride 5 MG Tablet 1 tablet in the evening Orally Once a dayMedication List reviewed and reconciled with the patientDiscontinued Levocetirizine Dihydrochloride 5 MG Tablet 1 tablet in the evening Orally Once a dayMedication List reviewed and reconciled with the patient * Allergies:?Obed vergara[Allergies Verified] Objective: * Vitals:?Ht: 60, BMI: 25.58 I ndex, Wt: 131 lbs, BP: 128/80 mm Hg, HR: 93 /min, Oxygen sat %: 97 %, Pain scale: 2 1-10, Ht-cm: 152.4, Wt-k.42 Roomed by Felecia Avendaño M.A. * ???Past Orders: Lab:Free T3 * Order Date 09/25/2023 12/22/2022 10/28/2022 Free T3 2.44?L (Ref Range: 2.5 - 3.9 pg/mL) 2.20?L (Ref Range: 2.5 - 3.9 pg/mL) 2.56 (Ref Range: 2.5 - 3.9 pg/mL) * Lab:Free T4 * Order Date 09/25/2023 12/22/2022 10/28/2022 Free T4 1.46?H (Ref Range: 0.61 - 1.12 ng/dL) 1.74?H (Ref Range: 0.61 - 1.12 ng/dL) 1.65?H (Ref Range: 0.61 - 1.12 ng/dL) * Lab:Hemoglobin A1c * Order Date 09/25/2023 09/09/2022 Hemoglobin A1c 5.000 (Ref Range: 4.0 - 6.0 %) 5.000 (Ref Range: 4.0 - 6.0 %) * Lab:Thyroid Stimulating Horm one * Order Date 09/25/2023 10/28/2022 09/09/2022 Thyroid Stimulating Hormone 1.56 (Ref Range: 0.45 - 5.33 uIU/mL) 1.66 (Ref Range: 0.45 - 5.33 uIU/mL) 6.05?H (Ref Range: 0.45 - 5.33 uIU/mL) * Lab:Complete Blood Count * Order Date 09/25/2023 12/22/2022 09/30/2022 WBC 11.27?H (Ref Range: 3.71 - 10.67 10*3/uL) 9.96 (Ref Range: 3.71 - 10.67 10*3/uL) 8.92 (Ref Range: 3.71 - 10.67 10*3/uL) LY% 24.29 (Ref Range: 18.94 - 46.71 %) 30.62 (Ref Range: 18.94 - 46.71 %) 32.71 (Ref Range: 18.94 - 46.71 %) MO% 5.30 (Ref Range: 4.88 - 12.81 %) 7.31 (Ref Range: 4.88 - 12.81 %) 7.56 (Ref Range: 4.88 - 12.81 %) NE% 69.35 (Ref Range: 40.62 - 71.65 %) 60.62 (Ref Range: 40.62 - 71.65 %) 58.44 (Ref Range: 40.62 - 71.65 %) EO% 0.58?L (Ref Range: 0.74 - 6.73 %) 0.93 (Ref Range: 0.74 - 6.73 %) 0.78 (Ref Range: 0.74 - 6.73 %) BA% 0.48 (Ref Range: 0.05 - 0.48 %) 0.52?H (Ref Range: 0.05 - 0.48 %) 0.50?H (Ref Range: 0.05 - 0.48 %) LY# 2.74 (Ref Range: 1.15 - 3.52 10*3/uL) 3.05 (Ref Range: 1.15 - 3.52 10*3/uL) 2.92 (Ref Range: 1.15 - 3.52 10*3/uL) MO# 0.60 (Ref Range: 0.25 - 0.99 10*3/uL) 0.73 (Ref Range: 0.25 - 0.99 10*3/uL) 0.67 (Ref Range: 0.25 - 0.99 10*3/uL) NE# 7.82?H (Ref Range: 1.85 - 6.72 10*3/uL) 6.04 (Ref Range: 1.85 - 6.72 10*3/uL) 5.21 (Ref Range: 1.85 - 6.72 10*3/uL) EO# 0.07 (Ref Range: 0.04 - 0.48 10*3/uL) 0.09 (Ref Range: 0.04 - 0.48 10*3/uL) 0.07 (Ref Range: 0.04 - 0.48 10*3/uL) BA# 0.05?H (Ref Range: 0 - 0.03 10*3/uL) 0.05?H (Ref Range: 0 - 0.03 10*3/uL) 0.04?H (Ref Range: 0 - 0.03 10*3/uL) RBC 4.73 (Ref Range: 3.87 - 5.68 10*6/uL) 4.76 (Ref Range: 3.87 - 5.68 10*6/uL) 4.51 (Ref Range: 3.87 - 5.68 10*6/uL) HGB 13.62 (Ref Range: 12.00 - 16.75 g/dL) 13.63 (Ref Range: 12.00 - 16.75 g/dL) 13.05 (Ref Range: 12.00 - 16.75 g/dL) HCT 40.3 (Ref Range: 35.1 - 48.7 %) 41.3 (Ref Range: 35.1 - 48.7 %) 38.7 (Ref Range: 35.1 - 48.7 %) MCV 85.2 (Ref Range: 78.4 - 97.6 fL) 86.7 (Ref Range: 78.4 - 97.6 fL) 85.9 (Ref Range: 78.4 - 97.6 fL) MCH 28.8 (Ref Range: 26.5 - 33.5 pg) 28.6 (Ref Range: 26.5 - 33.5 pg) 28.9 (Ref Range: 26.5 - 33.5 pg) MCHC 33.8 (Ref Range: 32.9 - 35.4 g/dL) 33.0 (Ref Range: 32.9 - 35.4 g/dL) 33.7 (Ref Range: 32.9 - 35.4 g/dL) RDW 14.9 (Ref Range: 12.7 - 15.6 %) 14.9 (Ref Range: 12.7 - 15.6 %) 15.0 (Ref Range: 12.7 - 15.6 %) RDW-SD 42.6 (Ref Range: 38.9 - 49.0 fL) 43.2 (Ref Range: 38.9 - 49.0 fL) 45.0 (Ref Range: 38.9 - 49.0 fL) PLT 395.3?H (Ref Range: 150.5 - 366.8 10*3/uL) 374.2?H (Ref Range: 150.5 - 366.8 10*3/uL) 419.1?H (Ref Range: 150.5 - 366.8 10*3/uL) MPV 10.23 (Ref Range: 7.42 - 10.77 fL) 10.18 (Ref Range: 7.42 - 10.77 fL) 9.91 (Ref Range: 7.42 - 10.77 fL) * Lab:Comprehensive Metabolic Panel * Order Date 09/25/2023 12/22/2022 10/28/2022 Sodium 137.000 (Ref Range: 136 - 145 mmol/L) 140.000 (Ref Range: 136 - 145 mmol/L) 137.000 (Ref Range: 136 - 145 mmol/L) ALP 50.000 (Ref Range: 34 - 104 U/L) 42.000 (Ref Range: 34 - 104 U/L) 41.000 (Ref Range: 34 - 104 U/L) Potassium 4.300 (Ref Range: 3.5 - 5.1 mmol/L) 4.500 (Ref Range: 3.5 - 5.1 mmol/L) 4.300 (Ref Range: 3.5 - 5.1 mmol/L) ALT 7.000 (Ref Range: 7 - 52 U/L) 7.000 (Ref Range: 7 - 52 U/L) 7.000 (Ref Range: 7 - 52 U/L) Chloride 97.000?L (Ref Range: 98 - 107 mmol/L) 101.000 (Ref Range: 98 - 107 mmol/L) 101.000 (Ref Range: 98 - 107 mmol/L) AST 13.000 (Ref Range: 13 - 39 U/L) 12.000?L (Ref Range: 13 - 39 U/L) 10.000?L (Ref Range: 13 - 39 U/L) Carbon Dioxide 27.180 (Ref Range: 21 - 31 mmol/L) 27.890 (Ref Range: 21 - 31 mmol/L) 24.690 (Ref Range: 21 - 31 mmol/L) Blood Urea Nitrogen 12.000 (Ref Range: 7 - 25 mg/dL) 16.000 (Ref Range: 7 - 25 mg/dL) 9.000 (Ref Range: 7 - 25 mg/dL) Creatinine 0.780 (Ref Range: 0.6 - 1.2 mg/dL) 0.800 (Ref Range: 0.6 - 1.2 mg/dL) 0.820 (Ref Range: 0.6 - 1.2 mg/dL) Bun Creatinine Ratio 15.4 (Ref Range: 10 - 28 Ratio) 20.0 (Ref Range: 10 - 28 Ratio) 11.0 (Ref Range: 10 - 28 Ratio) Glucose 84.000 (Ref Range: 70 - 105 mg/dL) 88.000 (Ref Range: 70 - 105 mg/dL) 102.000 (Ref Range: 70 - 105 mg/dL) Total Bilirubin 0.600 (Ref Range: 0.3 - 1.0 mg/dL) 0.700 (Ref Range: 0.3 - 1.0 mg/dL) 0.800 (Ref Range: 0.3 - 1.0 mg/dL) Calcium 9.100 (Ref Range: 8.6 - 10.3 mg/dL) 9.000 (Ref Range: 8.6 - 10.3 mg/dL) 8.500?L (Ref Range: 8.6 - 10.3 mg/dL) Albumin 4.640 (Ref Range: 3.5 - 5.7 g/dL) 4.370 (Ref Range: 3.5 - 5.7 g/dL) 4.140 (Ref Range: 3.5 - 5.7 g/dL) Total Protein 6.500 (Ref Range: 6.4 - 8.9 g/dL) 6.000?L (Ref Range: 6.4 - 8.9 g/dL) 5.700?L (Ref Range: 6.4 - 8.9 g/dL) eGFR 86 (Ref Range: 60 - 999 ml/min/1.73) 84 (Ref Range: 60 - 999 ml/min/1.73) 82 (Ref Range: 60 - 999 ml/min/1.73) eGFR Non 71 (Ref Range: 60 - 999 ml/min/1.73) 69 (Ref Range: 60 - 999 ml/min/1.73) 67 (Ref Range: 60 - 999 ml/min/1.73) Albumin Globulin Ratio 2.5 (Ref Range: 1.10 - 2.90 Ratio) 2.7 (Ref Range: 1.10 - 2.90 Ratio) 2.7 (Ref Range: 1.10 - 2.90 Ratio) ???Lab:Lipid Panel (Order Date - 09/25/2023) (Collection Date - 09/25/2023) ?ValueReference Range?Jxyzjhcqfyl190.000H0 - 200 - mg/dL ?Unpdbdwmqgao22.0000 - 150 - mg/dL?HDL Jagodxtbvbr91.12671 - 92 - mg/dL?LDL- Epakvt017.000H0 - 129 - mg/dL * Lab:Urinalysis, Complete - 0 78406 * Order Date 06/28/2023 09/08/2022 Specific Sharon 1.005 (Ref Range: 1.005-1.030) 1.020 (Ref Range: 1.005-1.030) pH 7.0 (Ref Range: 5.0-7.5) 6.0 (Ref Range: 5.0-7.5) Urine-Color Yellow (Ref Range: Yellow) Yellow (Ref Range: Yellow) Appearance Clear (Ref Range: Clear) Clear (Ref Range: Clear) WBC Esterase Trace?A (Ref Range: Negative) Negative (Ref Range: Negative) Protein Negative (Ref Range: Negative/Trace) 1+?A (Ref Range: Negative/Trace) Glucose Negative (Ref Range: Negative) Negative (Ref Range: Negative) Ketones Negative (Ref Range: Negative) Trace?A (Ref Range: Negative) Occult Blood 1+?A (Ref Range: Negative) 2+?A (Ref Range: Negative) Bilirubin Negative (Ref Range: Negative) Negative (Ref Range: Negative) Urobilinogen,Semi-Qn 0.2 (Ref Range: 0.2-1.0 mg/dL) 0.2 (Ref Range: 0.2-1.0 mg/dL) Nitrite, Urine Negative (Ref Range: Negative) Negative (Ref Range: Negative) Microscopic Examination See below: See below: WBC None seen (Ref Range: 0 - 5 /hpf) 0-5 (Ref Range: 0 - 5 /hpf) RBC None seen (Ref Range: 0 - 2 /hpf) 11-30?A (Ref Range: 0 - 2 /hpf) Epithelial Cells (non renal) None seen (Ref Range: 0 - 10 /hpf) >10?A (Ref Range: 0 - 10 /hpf) Casts None seen (Ref Range: None seen /lpf) None seen (Ref Range: None seen /lpf) Bacteria None seen (Ref Range: None seen/Few) Few (Ref Range: None seen/Few) * Examination: ???General Examination: ?GENERAL APPEARANCE:?in no acute distress, well developed, well nourished.?HEAD:?normocephalic, atraumatic.?NECK/THYROID:?neck supple, full range of motion, no cervical lymphadenopathy.?SKIN:?left lower leg rash.?HEART:?no murmurs, regular rate and rhythm, S1, S2 normal.?LUNGS:?good air movement, clear to auscultation bilaterally.?MUSCULOSKELETAL:? normal, full range of motion, no swelling or deformity, mid/upper back tenderness.?EXTREMITIES:?no clubbing, cyanosis, or edema.?PSYCH:? alert, oriented, judgement and insight good, anxiety associated w/ back pain.? Assessment: * Assessment: 1.?Hypothyroidism (acquired) - E03.9, 08/21/2022-TSH completed in [place] unknown, TSH ordered today as she reports she did have a change in her dose in the spring from 100mcg daily to 88mcg Synthroid currently.08/31/2022 TSH 14, Aaron notified. Increased her Synthroid to 100mcg daily and f/u 2 months for repeat TSH. She understands and agrees.09/01/22 [place] T4 1.42 TSH 14.13 we will increase to 587srp5/06/18 Free t4- 1.65 TSH 1.665/01/16 Free t4- 1.74 Free t3 2.20 TSH 1.26?2.?Primary hypertension - I10, 08/21/2022-stable home bp's on amlodipine 2.5mg daily, although slightly elevated in OV today, will continue to monitor. Recent CMP by oncology wnl.?3.?CLL (chronic lymphocytic leukemia) - C91.10, was in remission, recurrence 1 1/2 yrs ago, feels may have been brought on by vaccine, COVID 19. Stable on Imbruvica, follows w/ oncology Dr. Cisse [place], [place].06/28/23 patient is establishing with Dr [place] in [place]10/04/23 WBC 11.27 following with oncologist on ibrutinib?4.?GERD without esophagitis - K21.9, pepcid, not daily, Nexium?5.?Irritable bowel syndrome with diarrhea - K58.0, controlled. Cont to monitor?6.?Osteochondrodysplasia, unspecified - Q78.9, Thoracic Spine CT: IMPRESSION:1. Mild anterolisthesis of C7 on T1 of approximately 3 mm. 2. Vmcojtow-mg-axltop multilevel thoracic spondylosis and degenerative disc disease. 3. Exaggerated thoracic kyphosis. 4. No acute fracture or subluxation. 5. Patchy sclerotic changes within the T7 vertebral body with additional more extensive sclerotic changes in the L2 vertebral body. I cannot exclude malignancy/metastasis. Correlation with bone scan or MRI without and with contrast is strongly recommended.?7.?Mid-back pain, acute - M54.9, 08/21/2022 request records, 2 weeks chest xray Urgent Care, Aaron has concern about cancer, will follow w/ Dr. Carlos post CT scan thoracic-hx of bone lesion, will need to request these records from [facility] as well.09/01/22. Thoracic Spine CT: IMPRESSION:1. Mild anterolisthesis of C7 on T1 of approximately 3 mm. 2. Szlimolr-rq-ckrbgl multilevel thoracic spondylosis and degenerative disc disease. 3. Exaggerated thoracic kyphosis. 4. No acute fracture or subluxation. 5. Patchy sclerotic changes within the T7 vertebral body with additional more extensive sclerotic changes in the L2 vertebral body. I cannot exclude malignancy/metastasis. Correlation with bone scan or MRI without and with contrast is strongly recommended.09/01/22 we will start Physcial therapy as pt doesnt want MRI as of now. if not improved we will obtain MRI of T and L spine?8.?Other microscopic hematuria - R31.29, 3+ blood in urine will have her f/u w/ urology. 3rd time found hematuria.Has used keflex and cipro several antibx allergies.Urology referral Dr. Nichole for further evaluatoin.?9.?Environmental allergies - Z91.09?10.?Elevated blood sugar - R73.9?11.?Hyperlipemia, mixed - E78.2, 10/04/23 TC 241 Trigs 93 HDL 80 LDL 172?12.?Right hip pain - M25.551, 06/28/23 secondary to OA. 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 Plan: * Treatment: 2.?Primary hypertension? Notes: continue amlodipine.?? 3.?CLL (chronic lymphocytic leukemia)? Clinical Notes: stable, followed by oncologist.?? 4.?GERD without esophagitis? Clinical Notes: continue pepcid.?? 5.?Environmental allergies? Start Desloratadine Tablet, 5 MG, 1 tablet, Orally, Once a day, 90 days, 90 Tablet, Refills 1.?? Notes: contineu loratidine.?? 6.?Hyperlipemia, mixed? Clinical Notes: continue lifestyle changes and diet.?? 7.?Anxiety? Clinical Notes: continue prn xanax.?? 8.?Hypogammaglobulinemia? Clinical Notes: pt is scheduled for ivig through oncologist.?? 9.?Others? Clinical Notes: oncologist notes and labs were reviewed Total time in office and reviewing records today was 46 minutes.?? * Procedure Codes:?1036F TOBAC CO [id number] AMNT PAIN NOTED PAIN [id number] MED LIST DOCD IN [id number] BODY MASS INDEX [id number] DIAST BP < 80 MM [id number] SYST BP LT 130 MM HG * Follow Up:?6 Months * Images: * Sign off status: Completed true * Provider:?Hemanth Carlos, DO Date:? 024 Generated for Florecita loera/Tayler/Lincolnitting on:?08/07/2024 11:41 AM EST History and Physical Notes * Examination Category Sub-Category Detail Notes General Examination GENERAL APPEARANCE: in no ac tejon distress, well developed, well nourished HEAD: normocephalic, atrau matic NECK/THYROID: neck supple, full ra nge of motion, no cervical lymphadenopathy HEART: no murmurs, regular rate and rhythm, S1, S2 normal LUNGS: good air movement, c lear to auscultation bilaterally SKIN: left lower leg rash EXTREMITIES: no clubbing, cyanosi s, or edema MUSCULOSKELETAL: normal, full range o f motion, no swelling or deformity, mid/upper back tenderness PSYCH: alert, oriented, antonino gement and insight good, anxiety associated w/ back pain
--- OUTSIDE RECORDS SUMMARY | 2024-08-07 11:42 | XMS_ITS | Patient Health Record ---
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 Name Role Phone Hemanth Lunsford Primary Care Provider [phone] Hemanth Carlos [phone] Allergies Allergen (clinical drug ingredient) Drug/Non Drug Allergy documented on EMR Reaction Allergy Type Onset Date Status amoxicillin / clavulanate Augmentin Unknown Drug Allergy Active Levaquin Unknown Drug Allergy Active Sulfur Unknown Drug Allergy Active Results Component Value Reference Range Notes Free T3 Reviewed date:09/26/2023 05:41:25 AM Interpretation: Performing Lab: Notes/Report: Free T4 Reviewed date:09/26/2023 05:41:25 AM Interpretation: Performing Lab: Notes/Report: Hemoglobin A1c Reviewed date:09/26/2023 05:41:25 AM Interpretation: Performing Lab: Notes/Report: Hemoglobin A1c 5.000 4.0 - 6.0 % Thyroid Stimulating Hormone Reviewed date:09/26/2023 05:41:25 AM Interpretation: Performing Lab: Notes/Report: Thyroid Stimulating Hormone 1.56 0.45 - 5.33 u IU/mL Complete Blood Count Reviewed date:09/26/2023 05:41:25 AM Interpretation: Performing Lab: Notes/Report: WBC 11.27 3.71 - 10.67 10*3/uL RBC 4.73 3.87 - 5.68 10*6/uL HGB 13.62 12.00 - 16.75 g/dL HCT 40.3 35.1 - 48.7 % MCV 85.2 78.4 - 97.6 fL MCH 28.8 26.5 - 33.5 pg MCHC 33.8 32.9 - 35.4 g/dL RDW 14.9 12.7 - 15.6 % RDW-SD 42.6 38.9 - 49.0 fL PLT 395.3 150.5 - 366.8 10*3/uL MPV 10.23 7.42 - 10.77 fL NE% 69.35 40.62 - 71.65 % NE# 7.82 1.85 - 6.72 10*3/uL MO% 5.30 4.88 - 12.81 % MO# 0.60 0.25 - 0.99 10*3/uL LY% 24.29 18.94 - 46.71 % LY# 2.74 1.15 - 3.52 10*3/uL EO% 0.58 0.74 - 6.73 % EO# 0.07 0.04 - 0.48 10*3/uL BA% 0.48 0.05 - 0.48 % BA# 0.05 0 - 0.03 10*3/uL Comprehensive Metabolic Pane l Reviewed date:09/26/2023 05:41:25 AM Interpretation: Performing Lab: Notes/Report: Sodium 137.000 136 - 145 mmol/L Potassium 4.300 3.5 - 5.1 mmol/L Chloride 97.000 98 - 107 mmol/L Carbon Dioxide 27.180 21 - 31 mmol/L Glucose 84.000 70 - 105 mg/dL Blood Urea Nitrogen 12.000 7 - 25 mg/dL Creatinine 0.780 0.6 - 1.2 mg/dL Bun Creatinine Ratio 15.4 10 - 28 Ratio Calcium 9.100 8.6 - 10.3 mg/dL Total Protein 6.500 6.4 - 8.9 g/dL Albumin 4.640 3.5 - 5.7 g/dL Albumin Globulin Ratio 2.5 1.10 - 2.90 Ratio ALP 50.000 34 - 104 U/L ALT 7.000 7 - 52 U/L AST 13.000 13 - 39 U/L Total Bilirubin 0.600 0.3 - 1.0 mg/dL eGFR 86 60 - 999 ml/min/1.7 3 eGFR Non 71 60 - 999 ml/min /1.73 Lipid Panel Reviewed date:09/26/2023 05:41:25 AM Interpretation: Performing Lab: Notes/Report: Cholesterol 241.000 0 - 200 mg/dL Triglyceride 93.000 0 - 150 mg/dL HDL Cholesterol 80.000 23 - 92 mg/dL LDL- Direct 172.000 0 - 129 mg/dL Free T4 Reviewed date:12/01/2023 08:23:28 AM Interpretation: Performing Lab: Notes/Report: Thyroid Stimulating Hormone Reviewed date:12/01/2023 08:23:28 AM Interpretation: Performing Lab: Notes/Report: Thyroid Stimulating Hormone 1.48 0.45 - 5.33 u IU/mL Comprehensive Metabolic Pane l Reviewed date:12/01/2023 08:23:28 AM Interpretation: Performing Lab: Notes/Report: Sodium 138.000 136 - 145 mmol/L Potassium 4.500 3.5 - 5.1 mmol/L Chloride 100.000 98 - 107 mmol/L Carbon Dioxide 28.630 21 - 31 mmol/L Glucose 83.000 70 - 105 mg/dL Blood Urea Nitrogen 13.000 7 - 25 mg/dL Creatinine 0.840 0.6 - 1.2 mg/dL Bun Creatinine Ratio 15.5 10 - 28 Ratio Calcium 8.500 8.6 - 10.3 mg/dL Total Protein 6.300 6.4 - 8.9 g/dL Albumin 4.100 3.5 - 5.7 g/dL Albumin Globulin Ratio 1.9 1.10 - 2.90 Ratio ALP 50.000 34 - 104 U/L ALT 9.000 7 - 52 U/L AST 13.000 13 - 39 U/L Total Bilirubin 0.500 0.3 - 1.0 mg/dL eGFR 79 60 - 999 ml/min/1.7 3 eGFR Non 65 60 - 999 ml/min /1.73 Reason For Referral Reason formerly [facility] Diagnosis 1 CLL (chronic lymphoc ytic leukemia) (C91.10) Referral Organization [facility] Referring Provider First Name Hemanth Referring Provider Last Name Breanna Referring Provider Speciality Internal M edicine Referred Organization [facility] Referred Address [address], [place],[address], Referred Provider Specialty Oncology Referral Priority Routine Medications Medication SIG (Take, Route, Frequency, Duration) Notes Start Date End Date Status Flax Seed Oil Active Pepcid 40 MG 1 tablet at bedtime Orally as needed Active amLODIPine Besylate 2.5 MG 1 tablet Orally Once a day Active Loratadine 10 MG 1 tablet Orally Once a day Active Estring 7.5 MCG/24HR 1 ring Vaginal Active Xanax 0.25 MG 1 tablet Orally daily for 30 days prn 06/28/2023 Active Desloratadine 5 MG 1 tablet Orally Once a day for 90 days Active Synthroid 100 MCG 1 tablet in the morning on an empty stomach Orally Once a day for 90 days Name brand only Active Mupirocin 2 % 1 application Externally Twice a day for 30 days Active Milk of Magnesia Act jeanie Imbruvica 420 MG 1 tablet Orally Once a day 1 1/2 years for CLL-Dr. Wesley Benitez Active Social History Tobacco Use: Social History Observation Description Date Details (start date - stop date) Never Smoker NA - NA Tobacco Use/Smoking Question Answer Notes Are you a: never smoker Alcohol Screen (Audit-C) Question Answer Notes Did you have a drink containing alcohol in the p ast year? No Points 0 Interpretation Negative Problems Problem Type SNOMED Code ICD Code Onset Dates Problem Status W/U Status Risk Notes Problem 742644277 Irritable bowel syndrome with diarrhea (K58.0) Active confirmed controlled. Con t to monitor Problem Osteodystrophy (93205988) Osteochondrodys plasia, unspecified (Q78.9) Active confirmed Thoracic Spine CT: IMPRESSION:1. Mild anterolisthesis of C7 on T1 of approximately 3 mm. 2. Yttkyoyn-ul-dlhr re multilevel thoracic spondylosis and degenerative disc disease. 3. Exaggerated thoracic kyphosis. 4. No acute fracture or subluxation. 5. Patchy sclerotic changes within the T7 vertebral body with additional more extensive sclerotic changes in the L2 vertebral body. I cannot exclude malignancy/metas tasis. Correlation with bone scan or MRI without and with contrast is strongly recommended. Problem Mixed hyperlipidemia (344240910) Hyperlipemia, mixed (E78.2) Active confirmed 10/04/23 TC 241 Trigs 93 HDL 80 LDL 172 Problem 999164529 Hypothyroidism (acquired) (E03.9) Active confirmed 08/21/2022-TSH completed in [place] unknown, TSH ordered today as she reports she did have a change in her dose in the spring from 100mcg daily to 88mcg Synthroid currently. 08/31/2022 TSH 14, Aaron notified. Increased her Synthroid to 100mcg daily and f/u 2 months for repeat TSH. She understands and agrees. 1/6/23 [place] T4 1.42 TSH 14.13 we will increase to 100mcg 11/03/22 Free t4- 1.65 TSH 1.66 12/29/22 Free t4- 1.74 Free t3 2.20 TSH 1.26 Problem 21504501 Hypothyroidism, unspecified type (E03.9) Active confirmed Problem Environmental allergy (942497630) Environmental allergies (Z91.09) Active confirmed Problem Anxiety (16537982) Anxiety (F41.9) Active confirmed Problem 860294985 Diverticulosis (K57.90) Active confirmed Problem Hypogammaglobulin emia (171677859) Hypogammaglobul inemia (D80.1) Active confirmed 10/04/23 Pts Ig G 585 and was started on 2 rounds of IVIG at [facility]. Problem 421025235 GERD without esophagitis (K21.9) Active confirmed pepcid, not daily, Nexium Problem 74169925 Vaginal dryness, menopausal (N95.1) Active confirmed S-ring for year s for vaginal dryness, may stop using given hematuria and continue to monitor. Problem 15880195 CLL (chronic lymphocytic leukemia) (C91.10) Active confirmed was in remission, recurrence 1 1/2 yrs ago, feels may have been brought on by vaccine, COVID 19. Stable on Imbruvica, follows w/ oncology Dr. Cisse [place]. 06/28/23 patient is establishing with Dr Villeda in [place] 10/04/23 WBC 11.27 following with oncologist on ibrutinib Problem 43738081 Primary hypertension (I10) Active confirmed 08/21/2022-stab l e home bp's on amlodipine 2.5mg daily, although slightly elevated in OV today, will continue to monitor. Recent CMP by oncology wnl. Problem 460474980 History of malignant neoplasm of thyroid (Z85.850) Active confirmed 1989 thyroid removed papillary thyroid cancer, stable on Synthroid. Vital Signs Heart Rate 93 /min 10/04/2023 Roomed by Celeste Avendaño M.A. Oximetry 97 % 10/04/2023 Roomed by Celeste Avendaño M.A. Blood pressure diastolic 80 mm Hg 10/04/2023 [place] [facility] by Felecia Avendaño M.A. Height 60 in 10/04/2023 Roomed by Celeste Avendaño M.A. Blood pressure systolic 128 mm Hg 10/04/2023 Room ed by Felecia Avendaño M.A. Weight 131 lbs 10/04/2023 Roomed by Celeste Avendaño M.A. BMI 25.58 kg/m2 10/04/2023 Roomed by Celeste Avendaño M.A. Encounters Encounter Location Date Provider Diagnosis [facility] [address] [place] [address] 09/25/2023 Hemanth Carlos Hypothyroidism (acqu ired) E03.9 ; Primary hypertension I10 ; CLL (chronic lymphocytic leukemia) C91.10 ; GERD without esophagitis K21.9 ; Irritable bowel syndrome with diarrhea K58.0 ; Osteochondrodysplasia, unspecified Q78.9 ; Mid-back pain, acute M54.9 ; Other microscopic hematuria R31.29 ; Environmental allergies Z91.09 ; Elevated blood sugar R73.9 ; Hyperlipemia, mixed E78.2 ; Right hip pain M25.551 and Anxiety F41.9 [facility] [employer] [facility] [address] [address] 10/04/2023 Hemanth Carlos Hypothyroidism (acqu ired) E03.9 [...] on tympanic membrane of both ears H61.23 [facility] [address] [place] [address] 11/30/2023 Hemanth Lunsford Hypothyroidism (acqu ired) E03.9 ; Hyperlipemia, mixed E78.2 ; Hypogammaglobulinemia D80.1 and Hypothyroidism, unspecified type E03.9 [facility] [address] [address] 10/30/2023 Hemanth Carlos CLL (chronic lymphoc ytic leukemia) C91.10 Assessments Encounter Date Diagnosis (ICD Code) Assessment Notes Treatment Notes Treatment Clinical Notes 10/30/2023 CLL (chronic lymphoc ytic leukemia) (ICD-10 - C91.10) was in remission, recurrence 1 1/2 yrs ago, feels may have been brought on by vaccine, COVID 19. Stable on Imbruvica, follows w/ oncology Dr. Cisse [place]. 06/28/23 patient is establishing with Dr Villeda in [place] 10/04/23 WBC 11.27 following with oncologist on ibrutinib 11/30/2023 Hyperlipemia, mixed (ICD-10 - E78.2) 10/04/23 TC 241 Trigs 93 HDL 80 LDL 172 11/30/2023 Hypothyroidism (acqu ired) (ICD-10 - E03.9) 08/21/2022-TSH completed in [place] unknown, TSH ordered today as she reports [...] t4- 1.74 Free t3 2.20 TSH 1.26 09/25/2023 Primary hypertension (ICD-10 - I10) 08/21/2022-stable home bp's on amlodipine 2.5mg daily, although slightly elevated in OV today, will continue to monitor. Recent CMP by oncology wnl. 10/04/2023 Hypothyroidism (acqu ired) (ICD-10 - E03.9) 08/21/2022-TSH completed in [place] unknown, TSH ordered today as she reports [...] Recent CMP by oncology wnl. continue amlodipine 09/25/2023 Hypothyroidism (acqu ired) (ICD-10 - E03.9) 08/21/2022-TSH completed in [place] unknown, TSH ordered today as she reports [...] t4- 1.74 Free t3 2.20 TSH 1.26 10/04/2023 CLL (chronic lymphoc ytic leukemia) (ICD-10 - C91.10) was in remission, recurrence 1 1/2 yrs ago, feels may have been brought on by vaccine, COVID 19. Stable on Imbruvica, follows w/ oncology Dr. Cisse [place]. 06/28/23 patient is establishing with Dr Villeda in [place] 10/04/23 WBC 11.27 following with oncologist on ibrutinib stable, followed by oncologist 11/30/2023 Hypogammaglobulinemi a (ICD-10 - D80.1) 10/04/23 Pts IgG 585 and was started on 2 rounds [facility] at [facility]. 09/25/2023 CLL (chronic lymphoc ytic leukemia) (ICD-10 - C91.10) was in remission, recurrence 1 1/2 yrs ago, feels may have been brought on by vaccine, COVID 19. Stable on Imbruvica, follows w/ oncology Dr. Cisse [place]. 06/28/23 patient is establishing with [facility] Villeda in [facility] 09/25/2023 GERD without esophag itis (ICD-10 - K21.9) pepcid, not daily, Nexium 11/30/2023 Hypothyroidism, unspecified type (ICD-10 - E03.9) 10/04/2023 GERD without esophag itis (ICD-10 - K21.9) pepcid, not daily, Nexium continue pepcid 09/25/2023 Irritable bowel synd rodríguez with diarrhea (ICD-10 - K58.0) controlled. Cont to monitor 10/04/2023 Irritable bowel synd rodríguez with diarrhea (ICD-10 - K58.0) controlled. Cont to monitor 10/04/2023 Osteochondrodysplasi a, unspecified (ICD-10 - Q78.9) Thoracic Spine CT: IMPRESSION:1. Mild anterolisthesis of C7 on T1 of approximately 3 mm. 2. Dvlgwvzy-cz-omgtpg multilevel thoracic spondylosis and degenerative disc disease. 3. Exaggerated thoracic kyphosis. 4. No acute fracture or subluxation. 5. Patchy sclerotic changes within the T7 vertebral body with additional more extensive sclerotic changes in the L2 vertebral body. I cannot exclude malignancy/metastas is. Correlation with bone scan or MRI without and with contrast is strongly recommended. 09/25/2023 Osteochondrodysplasi a, unspecified (ICD-10 - Q78.9) Thoracic Spine CT: IMPRESSION:1. Mild anterolisthesis of C7 on T1 of approximately 3 mm. 2. Poyfrunw-pk-srlmls multilevel thoracic spondylosis and degenerative disc disease. [...] will need to request these records from [place] as well. 09/01/22. Thoracic Spine CT: IMPRESSION:1. Mild anterolisthesis of C7 on T1 of approximately 3 mm. 2. Efmufldv-ln-hmeauo multilevel thoracic spondylosis and degenerative disc disease. [...] obtain MRI of T and L spine 09/25/2023 Mid-back pain, acute (ICD-10 - M54.9) 08/21/2022 request records, 2 weeks chest xray Urgent Care, Aaron has concern about cancer, will follow w/ Dr. Carlos post CT scan thoracic-hx of bone lesion, will need to request these records from [place] as well. 09/01/22. Thoracic Spine CT: IMPRESSION:1. Mild anterolisthesis of C7 on T1 of approximately 3 mm. 2. Nlpucqjv-jz-brckrz multilevel thoracic spondylosis and degenerative disc disease. [...] Urology referral Dr. Nichole for further evaluatoin. 09/25/2023 Other microscopic hematuria (ICD-10 - R31.29) 3+ blood in urine will have her f/u w/ urology. 3rd time found hematuria. Has used keflex and cipro several antibx allergies. Urology referral Dr. Nichole for further evaluatoin. 09/25/2023 Environmental allerg ies (ICD-10 - Z91.09) 10/04/2023 Environmental allerg ies (ICD-10 - Z91.09) contineu loratidine 10/04/2023 Elevated blood sugar (ICD-10 - R73.9) 09/25/2023 Elevated blood sugar (ICD-10 - R73.9) 09/25/2023 Hyperlipemia, mixed (ICD-10 - E78.2) 10/04/2023 Hyperlipemia, mixed (ICD-10 - E78.2) 10/04/23 TC 241 Trigs 93 HDL 80 LDL 172 continue lifestyle changes and diet. 10/04/2023 Right hip pain (ICD- 10 - M25.551) 06/28/23 secondary to OA. she has undergoing physical therapy 09/25/2023 Right hip pain (ICD- 10 - M25.551) 06/28/23 secondary to OA. she has undergoing physical therapy 10/04/2023 Anxiety (ICD-10 - F41.9) continue prn xanax. 09/25/2023 Anxiety (ICD-10 - F41.9) 10/04/2023 Hypogammaglobulinemi a (ICD-10 - D80.1) 10/04/23 Pts IgG 585 and was started on 2 rounds of IVIG at [facility]. pt is scheduled for ivig through oncologist. 10/04/2023 Cerumen debris on tympanic membrane of both ears (ICD-10 - H61.23) 10/04/23 improved with ear lavage 10/04/2023 Other oncologist notes and labs were reviewed Total time in office and reviewing records today was 46 minutes Plan Of Treatment Pending Test Test Name Order Date TSH+Free T4 09/01/2022 TSH+Free T4 11/03/2022 TSH+Free T4 12/29/2022 TSH+Free T4 06/28/2023 CT Scan : T/Spine W/O Contrast MRI : Lumbar with and without Contrast 0 09/01/2022 MRI : Thoracic with and without Contrast 09/01/2022 T3, FREE 09/01/2022 T3, FREE 11/03/2022 T3, FREE 06/28/2023 T3, FREE 12/29/2022 Magnesium - [id number] 09/08/2022 Triiodothyronine (T3), Free 09/19/2022 TSH+Free T4 - [id number] 08/21/2022 TSH+Free T4 - [id number] 08/31/2022 Comp. Metabolic Panel (14) 09/01/2022 Comp. Metabolic Panel (14) 11/03/2022 Comp. Metabolic Panel (14) 12/29/2022 Comp. Metabolic Panel (14) 06/28/2023 Complete Blood Count 06/28/2023 Complete Blood Count 12/29/2022 Complete Blood Count 11/03/2022 Complete Blood Count 09/01/2022 Lipid Panel 06/28/2023 Lipid Panel 12/29/2022 Hemoglobin A1c 12/29/2022 Hemoglobin A1c 06/28/2023 Urinalysis 06/28/2023 Urinalysis 09/01/2022 Urinalysis, Complete 09/08/2022 Insurance Providers Payer Name Payer Address Payer Phone Subscriber Number Group Number Insured Name Patient Relationship to Insured Coverage Start Date Coverage End Date Medicare [address] [place] [address] [id number] Jade Vallejo Self - patient is the insured 2 [facility] [address] [address] [place] [address] [id number] Jade Vallejo Self - patient is the insured 2 Medical (General) History Medical History History ICD Code early cataracts hypertension diverticulosis irritable bowel syndrome hemorrhoids gastroesophageal reflux disease (GERD) thyroid cancer Chronic Lymphocytic Leukemia Surgical History Surgery Date(Month/Year) Tonsillectomy 194 Colonoscopy Tubal Ligation 1974 Thyroidectomy 1989 Thyroidectomy 2004 Bunion 1995 Cholecystectomy
[2024-08-15 12:46] LABS: MPNR Result see interpretation
== END 2024-08-07 11:38 | disposition home or self-care (01) ==
LOC: LBO 11:39
PROVIDERS: Visit Provider Nurse Practitioner Adult Health
DX: D75.839 Thrombocytosis, unspecified (principal)
CPT/HCPCS: 36415; 81219; 81270; 81339

== ENCOUNTER 2024-08-28 03:55 | Outpatient (CLI) | payer MEDICARE, OTHER, SELFPAY ==
[2024-08-28 07:20] LABS: Abs Immature Grans 0.04 10^3/uL (0.0-0.06); Absolute Eosinophil Count 0.16 10^3/uL (0.0-0.7); Absolute Monocyte Count 1.15 10^3/uL (0.1-0.8); Basophils % 1.8 %; Eosinophils % 1.4 %; HCT 39.9 % (36.0-46.0); HGB 13.5 g/dL (11.2-15.7); Immature Grans % 0.4 %; Lymphocytes % 18.7 %; MCH 28.3 pg (27.0-33.0); MCHC 33.8 % (32.0-36.0); MCV 84 fL (80-95); MPV 10.3 fL (8.0-11.0); Monocytes % 10.2 %; Neutrophils % 67.5 %; Platelet Count 364 10^3/uL (130-400); RBC 4.77 10^6/uL (3.93-5.22); RDW 13.1 % (11.7-14.6); RDW-SD 39.9 fL; WBC 11.31 10^3/uL (4.4-10.8)
[2024-08-28 07:22] LABS: Absolute Lymphocyte Count 2.11 10^3/uL (1.2-3.4); Absolute Neutrophil Count 7.63 10^3/uL (1.2-6.7)
[2024-08-28 07:34] LABS: ALT 15 U/L (14-59); AST 14 U/L (15-37); Albumin 3.5 g/dL (3.4-5.0); Alkaline Phosphatase 65 U/L (46-116); Anion Gap 4.9 mmol/L (3-11); BUN 13 mg/dL (7-18); Bilirubin, Total 0.35 mg/dL (0.2-1.0); CO2 31.1 mmol/L (21.0-32.0); Calcium 8.4 mg/dL (8.5-10.1); Chloride 104 mmol/L (98-107); Estimated GFR 56.95 (mL/min/1.73m2); Glucose 70 mg/dL (74-106); LDH 128 U/L (81-234); Potassium 4.5 mmol/L (3.5-5.1); Sodium 140 mmol/L (136-145); Total Protein 6.7 g/dL (6.4-8.2)
[2024-08-29 09:35] LABS: IgG 415 mg/dL (610-1616)
== END 2024-08-28 03:56 | disposition home or self-care (01) ==
LOC: LBO 03:55
PROVIDERS: Visit Provider Nurse Practitioner Adult Health
DX: C91.10 Chronic lymphocytic leukemia of B-cell type not having achieved remission (principal); D80.1 Nonfamilial hypogammaglobulinemia
CPT/HCPCS: 36415; 80053; 82784; 83615; 85025

== ENCOUNTER 2024-10-08 08:29 | Outpatient (CLI) | payer MEDICARE, OTHER, SELFPAY ==
[2024-10-08 08:20] LABS: Abs Immature Grans 0.04 10^3/uL (0.0-0.06); Absolute Basophil Count 0.15 10^3/uL (0.0-0.2); Absolute Eosinophil Count 0.07 10^3/uL (0.0-0.7); Absolute Lymphocyte Count 2.15 10^3/uL (1.2-3.4); Absolute Monocyte Count 0.63 10^3/uL (0.1-0.8); Absolute Neutrophil Count 5.93 10^3/uL (1.2-6.7); Basophils % 1.7 %; Eosinophils % 0.8 %; HCT 39.4 % (36.0-46.0); HGB 13.1 g/dL (11.2-15.7); Immature Grans % 0.4 %; MCH 28.2 pg (27.0-33.0); MCHC 33.2 % (32.0-36.0); MCV 85 fL (80-95); MPV 10.2 fL (8.0-11.0); Neutrophils % 66.1 %; Platelet Count 426 10^3/uL (130-400); RBC 4.64 10^6/uL (3.93-5.22); RDW 13.5 % (11.7-14.6); RDW-SD 41.8 fL; WBC 8.97 10^3/uL (4.4-10.8)
[2024-10-08 08:37] LABS: ALT 19 U/L (14-59); AST 11 U/L (15-37); Albumin 3.6 g/dL (3.4-5.0); Alkaline Phosphatase 62 U/L (46-116); Anion Gap 3.3 mmol/L (3-11); BUN 15 mg/dL (7-18); Bilirubin, Total 0.41 mg/dL (0.2-1.0); CO2 32.7 mmol/L (21.0-32.0); Calcium 8.8 mg/dL (8.5-10.1); Chloride 104 mmol/L (98-107); Glucose 101 mg/dL (74-106); LDH 126 U/L (81-234); Potassium 4.3 mmol/L (3.5-5.1); Sodium 140 mmol/L (136-145); Total Protein 6.6 g/dL (6.4-8.2)
[2024-10-09 10:17] LABS: IgG 1091 mg/dL (610-1616)
[2024-10-21 11:41] LABS: MPNR Result see interpretation
== END 2024-10-08 08:30 | disposition home or self-care (01) ==
LOC: LBO 08:33
PROVIDERS: Visit Provider Nurse Practitioner Adult Health
DX: C91.10 Chronic lymphocytic leukemia of B-cell type not having achieved remission (principal); D47.1 Chronic myeloproliferative disease
CPT/HCPCS: 36415; 80053; 81219; 81270; 81339; 82784; 83615; 85025

== ENCOUNTER 2025-01-01 01:39 | Outpatient (CLI) | payer MEDICARE, OTHER, SELFPAY ==
[2025-01-02 10:42] LABS: IgG 434 mg/dL (610-1616)
== END 2025-01-01 01:40 | disposition home or self-care (01) ==
LOC: LBO 01:39
PROVIDERS: Visit Provider Nurse Practitioner Adult Health
DX: C91.10 Chronic lymphocytic leukemia of B-cell type not having achieved remission (principal); D80.1 Nonfamilial hypogammaglobulinemia
CPT/HCPCS: 36415; 82784; 82565